=== PATIENT | male | born 1940 | race Caucasian/White ===

== ENCOUNTER 2018-08-21 19:56 | Emergency (ER) | payer OTHER ==
[2018-08-21] MEDS ORDERED: Ketorolac 30 MG/ML SDV IM ONE (20:31)
--- NOTE | 2018-08-21 20:38 | EDM.PDOC ---
ED HPI GENERAL MEDICAL PROBLEM - General Chief Complaint: Upper Extremity Injury/Pain Stated Complaint: DOG ATTACKED SHOULDER INJURY Time Seen by Provider: 08/21/18 20:11 Source of Information: Reports: Patient, RN Notes Reviewed History Limitations: Reports: No Limitations - History of Present Illness INITIAL COMMENTS - FREE TEXT/NARRATIVE: Patient is a 78-year-old male who presents to the ED for evaluation of a right shoulder injury. The patient states he was camping in [place] and was charged by a large [place]. He states that he started running backwards and ended up falling onto his right shoulder. He does not think that he hit his head at all, he did not have any loss of consciousness or blackout. The dog did not actually bite or scratch him. The patient is complaining most of having right shoulder pain that worsens with any type of movement. He states that this is a sharp pain in nature. There is no obvious deformity noted, there were small abrasions noted to his left elbow and mid thoracic spine. The patient denies any numbness or tingling into the right extremity. Right Shoulder Pain Score (Numeric/FACES): 5 - Related Data Allergies Allergy/AdvReac Type Severity Reaction Status Date / Time fentanyl Allergy Nausea Verified 08/21/18 20:09 Penicillins Allergy Hives Verified 08/21/18 20:09 Home Meds: Home Meds . [No Known Home Meds] 08/21/18 [History] Past Medical History Cardiovascular History: Reports: Other (See Below) Other Cardiovascular History: mitral valve Oncologic (Cancer) History: Reports: Prostate - Past Surgical History HEENT Surgical History: Reports: Cataract Surgery, Tonsillectomy GI Surgical History: Reports: Cholecystectomy Social & Family History - Tobacco Use Smoking Status *Q: Never Smoker - Caffeine Use Caffeine Use: Reports: Coffee - Recreational Drug Use Recreational Drug Use: No Review of Systems - Review of Systems Review Of Systems: See Below Constitutional: Reports: No Symptoms Eyes: Reports: No Symptoms Ears: Reports: No Symptoms Nose: Reports: No Symptoms Mouth/Throat: Reports: No Symptoms Respiratory: Reports: No Symptoms Cardiovascular: Reports: No Symptoms GI/Abdominal: Reports: No Symptoms Genitourinary: Reports: No Symptoms Musculoskeletal: Reports: Joint Pain (Right Shoulder pain) Skin: Reports: No Symptoms Neurological: Denies: Numbness, Tingling Psychiatric: Reports: No Symptoms ED EXAM, GENERAL - Physical Exam Exam: See Below Exam Limited By: No Limitations General Appearance: Alert, WD/WN, No Apparent Distress Respiratory/Chest: No Respiratory Distress, Lungs Clear, Normal Breath Sounds, No Accessory Muscle Use, Chest Non-Tender Cardiovascular: Normal Peripheral Pulses, Regular Rate, Rhythm, No Murmur Peripheral Pulses: 3+: Radial (L), Radial (R) Extremities: Normal Inspection, Normal Capillary Refill, Limited Range of Motion (to right shoulder, patient is hold his Right arm with his left arm, he is unwilling to move it much without causing pain.). No: Joint Swelling Neurological: Alert, Oriented, Normal Cognition, Normal Gait, No Motor/Sensory Deficits Psychiatric: Normal Affect, Normal Mood Skin Exam: Warm, Dry, Normal Color, No Rash, Wound/Incision (Abrasion noted to left elbow, and midline thoracic spine) Course - Vital Signs Last Recorded V/S: Last Vital Signs Temp 98.3 F 08/21/18 20:04 Pulse 94 08/21/18 20:04 Resp 18 08/21/18 20:04 BP 177/95 H 08/21/18 20:04 Pulse Ox 99 08/21/18 20:04 - Orders/Labs/Meds Orders: Active Orders 24 hr Category Date Time Status Shoulder Comp Rt [CR] Stat Exams 08/21/18 20:30 Ordered DME for Discharge [COMM] Routine Oth 08/21/18 21:36 Ordered Meds: Medications Discontinued Medications Generic Name Dose Route Start Last Admin Trade Name Jbq PRN Reason Stop Dose Admin Ketorolac Tromethamine 30 mg 08/21/18 20:31 08/21/18 20:56 Toradol IM 08/21/18 20:32 30 mg ONETIME ONE Administration - Re-Assessments/Exams Free Text/Narrative Re-Assessment/Exam: 08/21/18 20:37 Patient resents to the ED for the evaluation of a right shoulder injury. I have ordered right shoulder x-rays to further evaluate, and 30 mg IM Toradol for initial management. As he was in a lot of pain at initial evaluation, I did not get a very good physical exam in regards to range of motion. I will reexamine once the Toradol has a chance to work. 08/21/18 21:29 Patient was reassessed at bedside, and states that his pain is much better. His x-rays were reviewed by myself and Dr. Jean Baptiste, there does not appear to be any bony fracture or abnormality or dislocation at this time. We will provide the patient with general recommendations and discharge home. Departure - Departure Time of Disposition: 21:30 Disposition: Home, Self-Care 01 Condition: Fair Clinical Impression: Right shoulder pain Qualifiers: Chronicity: acute Qualified Code(s): M25.511 - Pain in right shoulder - Discharge Information *PRESCRIPTION DRUG MONITORING PROGRAM REVIEWED*: No *COPY OF PRESCRIPTION DRUG MONITORING REPORT IN PATIENT VINNIE: No Instructions: Shoulder Pain, [id number] Referrals: PCP,None [Primary Care Provider] - Forms: ED Department Discharge Additional Instructions: You have been evaluated in the ED for your right shoulder injury. Your x-ray demonstrated no acute bony fracture or abnormality at this ED visit. Please use ice as tolerated to the affected area. You may take tylenol 500 mg or ibuprofen 600mg q6 hrs for pain relief. Please do so until you have a tolerable level of pain with activity. Do not exceed 4000mg tylenol, Do not exceed 3200mg ibuprofen in a 24 hour time period. Please use the sling provided to provide further pain relief for your shoulder. Recommend that you follow up with your primary care provider in 7-10 days if the pain is not much better for a possible MRI to evaluate for soft tissue injury. Please return to ED if your symptoms should change or worsen. - My Orders Last 24 Hours: My Active Orders 08/21/18 20:30 Shoulder Comp Rt [CR] Stat 08/21/18 21:36 DME for Discharge [COMM] Routine - Assessment/Plan Last 24 Hours: My Active Orders 08/21/18 20:30 Shoulder Comp Rt [CR] Stat 08/21/18 21:36 DME for Discharge [COMM] Routine
--- NOTE | 2018-08-24 10:42 | CR ---
Right shoulder: Three views of the right shoulder were obtained. Comparison: No previous shoulder study. Joint space narrowing is seen within the acromioclavicular joint with mild inferior spurring. Small inferior hook also noted off the acromion process. Glenohumeral joint is within normal limits. No acute fracture, dislocation or other bony abnormality is seen. Impression: 1. Degenerative change within the acromioclavicular joint as noted above. 2. Right shoulder study is otherwise unremarkable. Diagnostic code #3 I agree with preliminary report from [facility], finalized on 08/21/18, 10:55 PM Central Time
== END 2018-08-21 21:57 | disposition home or self-care (01) ==
LOC: JD.ED 19:56
DX: S50.312A Abrasion of left elbow, initial encounter (principal); S20.419A Abrasion of unspecified back wall of thorax, initial encounter; M25.511 Pain in right shoulder; Z88.0 Allergy status to penicillin; Z88.8 Allergy status to other drugs, medicaments and biological substances; W18.39XA Other fall on same level, initial encounter
CPT/HCPCS: 73030; 99283; J1885